=== PATIENT | female | born 1945 | race Caucasian/White ===

== ENCOUNTER → 2018-07-28 | Outpatient (CLI) | payer MEDICARE, BC ==
[~2018-07-28] MED LIST: AMOXICILLIN 8751 TAB PO; CRESTOR5 MG PO; EVISTA 60MG60 MG/TAB; MOTRIN 600600 MG/TAB PO; PERCOCET 325 MG1 TA2 PO; PREDNISONE20 MG
== END ==
LOC: MC.RAD 06-10 11:00
DX: Z12.31 Encounter for screening mammogram for malignant neoplasm of breast (principal)

== ENCOUNTER 2020-06-09 08:53 | Emergency (ER) | payer MEDICARE, BC ==
[~2020-06-09] VITALS: Ht 162.6 cm; Wt 61.4 kg
[2020-06-09 08:56] VITALS: TEMP 98
[2020-06-09] MEDS ORDERED: ZOFRAN ODT8 MG PO (09:14)
[2020-06-09 09:25] LABS: BASO # 0.1 (0.0-0.2); EOS # 0.2 (0.0-0.7); EOS % 3.8 % (0-4.0); GRAN # 3.1 (1.4-6.5); GRAN % 48.9 % (42.2-75.2); HEMATOCRIT 38.4 % (37.0-47.0); HEMOGLOBIN 12.7 g/dl (12.5-16.0); LYMPH # 2.4 (1.2-3.4); LYMPH % 37.4 % (20.0-51.0); MEAN CELL VOLUME 89 fl (80.0-100.0); MEAN CORPUSCULAR HEMOGLOBIN 30 pg (27.0-31.0); MEAN CORPUSCULAR HGB CONC 33 g/dl (33.0-37.0); MEAN PLATELET VOLUME 10.2 fl (7.4-10.4); MONO # 0.6 (0.1-0.6); MONO % 8.7 % (1.7-9.3); PLATELET COUNT 234 K/mm3 (130-400); RED BLOOD COUNT 4.31 M/mm3 (4.10-5.30); REDCELL DISTRIBUTION WIDTH-CV 13.1 % (11.5-14.5)
[2020-06-09 09:34] LABS: BILIRUBIN,TOTAL 0.6 mg/dL (0.0-1.0); CALCIUM 9.1 mg/dL (8.4-10.2); CREATININE, serum 0.87 (0.52-1.25); TOTAL PROTEIN 6.9 gm/dL (6.4-8.2)
[2020-06-09 10:13] VITALS: BP 115/59; PULSE 63
[2020-06-09] MEDS ORDERED: AMOXICILLIN 8751 TAB PO (10:17)
== END 2020-06-09 10:45 | disposition home or self-care (01) ==
LOC: COL.ER 08:53
PROVIDERS: Emergency Medicine
DX: S06.0X9A Concussion with loss of consciousness of unspecified duration, initial encounter (principal); R40.2412 Glasgow coma scale score 13-15, at arrival to emergency department; W01.198A Fall on same level from slipping, tripping and stumbling with subsequent striking against other object, initial encounter; Y92.009 Unspecified place in unspecified non-institutional (private) residence as the place of occurrence of the external cause
CPT/HCPCS: J2405; J7040